=== PATIENT | female | born 1950 | race Caucasian/White ===

== ENCOUNTER 2021-05-05 15:20 | Emergency (ER) | payer OTHER, MEDICAID ==
--- NOTE | 2021-05-05 15:22 | EDM.PDOC ---
ED HPI GENERAL MEDICAL PROBLEM - General Stated Complaint: ARM INJURY Time Seen by Provider: 05/05/21 15:20 Source of Information: Reports: Patient History Limitations: Reports: No Limitations - History of Present Illness INITIAL COMMENTS - FREE TEXT/NARRATIVE: Patient comes emergency department today from home with concerns of an injury to her right shoulder. Just prior to arrival the patient was at home when she was walking her dog which is a rather large dog that took off running and pulled on her leash and she fell landing on her right shoulder. She did not hit her head. There was no loss of conscious. She complains of pain to the right lateral shoulder region. She denies any paresthesia to the right arm. She has no head neck or back pain. She had no loss of consciousness. She had not take anything for pain prior to arrival. Right Upper Arm Pain Score (Numeric/FACES): 6 - Related Data Allergies Allergy/AdvReac Type Severity Reaction Status Date / Time bee venom protein (honey bee) Allergy Hives Verified 05/05/21 15:47 lisinopril Allergy Cough Verified 05/05/21 15:47 Penicillins Allergy Cannot Verified 05/05/21 15:47 Remember "anesthesia" Allergy Shortness Uncoded 05/05/21 15:47 of Breath Home Meds: Home Meds Acetaminophen [Tylenol Extra Strength] 1,000 mg PO TID PRN 08/15/18 [History] Aspirin [Halfprin] 81 mg PO DAILY 08/15/18 [History] Cholecalciferol (Vitamin D3) [Vitamin D3] 1,000 units PO DAILY 08/15/18 [History] Divalproex Sodium [Depakote ER] 500 mg PO BID 08/15/18 [History] Loratadine [Claritin] 5 mg PO DAILY@18 08/15/18 [History] Multivitamin [Multi-Vitamin Daily] 1 each PO DAILY 08/15/18 [History] Sertraline [Zoloft] 125 mg PO DAILY 08/15/18 [History] Sodium Chloride 1 gm PO BID 08/15/18 [History] Spironolactone [Aldactone] 12.5 mg PO DAILY 08/15/18 [History] atorvaSTATin Calcium [Lipitor] 20 mg PO DAILY@18 08/15/18 [History] Albuterol/Ipratropium [DuoNeb 3.0-0.5 MG/3 ML] 1 vial INH TID 08/07/19 [History] Albuterol/Ipratropium [DuoNeb 3.0-0.5 MG/3 ML] 3 ml INH QID PRN 08/07/19 [History] Benzonatate 200 mg PO TID 08/07/19 [History] Eucalyptus/Menthol [Cough Drops] 1 ea PO Q2H PRN 08/07/19 [History] Omeprazole 20 mg PO DAILY 08/07/19 [History] Phenylephrine HCl [Sudogest PE] 10 mg PO Q4H PRN 08/07/19 [History] Polyvinyl Alcohol [LiquiTears 1.4% Ophth Soln] 1 drop EYEBOTH QID PRN 08/07/19 [History] QUEtiapine [SEROquel] 25 mg PO DAILY 08/07/19 [History] QUEtiapine [SEROquel] 50 mg PO DAILY@18 08/07/19 [History] amLODIPine [Norvasc] 2.5 mg PO DAILY 08/07/19 [History] guaiFENesin/Dextromethorphan [Tussin Dm Liquid] 5 ml PO Q4H 08/07/19 [History] guaiFENesin/Dextromethorphan [Tussin Dm Liquid] 5 ml PO TID 08/07/19 [History] traMADol HCl [Tramadol HCl] 50 mg PO TID PRN #12 tablet 05/05/21 [Rx] Past Medical History HEENT History: Reports: Allergic Rhinitis Cardiovascular History: Reports: High Cholesterol, Hypertension 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: Musculoskeletal History: Reports: Osteoarthritis, Other (See Below) (chronic pain) Neurological History: Reports: Seizure Psychiatric History: Reports: Alzheimers Disease, Anxiety, Dementia, Depression, PTSD, Other (See Below) (insomnia, history of self-harm) Other Psychiatric History: history of self harm Hematologic History: Reports: Other (See Below) (chronically low Na/Cl, Vitamin D deficiency) Social & Family History - Family History Family Medical History: No Pertinent Family History - Caffeine Use Caffeine Use: Reports: Coffee Review of Systems - Review of Systems Review Of Systems: Comprehensive ROS is negative, except as noted in HPI. ED EXAM, GENERAL - Physical Exam Exam: See Below Exam Limited By: No Limitations General Appearance: Alert, WD/WN, No Apparent Distress Eye Exam: Bilateral Eye: EOMI, PERRL Ears: Normal External Exam Nose: Normal Inspection Throat/Mouth: Normal Inspection Head: Atraumatic, Normocephalic Neck: Normal Inspection, Supple, Non-Tender, Full Range of Motion. No: Tender Lateral, Tender Midline Respiratory/Chest: No Respiratory Distress, Lungs Clear, Normal Breath Sounds, No Accessory Muscle Use, Chest Non-Tender Cardiovascular: Normal Peripheral Pulses, Regular Rate, Rhythm GI/Abdominal: Normal Bowel Sounds, Soft (Female) Exam: Deferred Rectal (Female) Exam: Deferred Extremities: Normal Capillary Refill. No: Normal Inspection (Tenderness to the lateral right shoulder. NO loss of fullness. NO breaks in the skin. Humerus and rest of the right arm is atraumatic. CMS intact appropriately. ), Normal Range of Motion (Decreased ROM to the right shoulder. ) Neurological: Alert, Oriented, No Motor/Sensory Deficits Psychiatric: Normal Affect, Normal Mood Skin Exam: Warm, Dry, Intact, Normal Color Lymphatic: No Adenopathy Course - Vital Signs Last Recorded V/S: Last Vital Signs Temp 96.9 F 05/05/21 15:15 Pulse 60 05/05/21 15:15 Resp 20 05/05/21 15:15 BP 159/75 H 05/05/21 15:15 Pulse Ox 100 05/05/21 15:15 - Orders/Labs/Meds Meds: Medications Discontinued Medications Generic Name Dose Route Start Last Admin Trade Name Ohq PRN Reason Stop Dose Admin Tramadol HCl 1 packet 05/05/21 16:15 05/05/21 16:28 Take Home: Tramadol 50 Mg, 4 Tab Pack PO 05/05/21 16:16 1 packet ONETIME ONE Administration - Radiology Interpretation Free Text/Narrative:: Right shoulder x-ray per radiology shows acute subcapital right femoral neck fracture with involvement of the greater tuberosity. The greater tuberosity demonstrates approximately 3 mm of lateral displacement. No dislocation. 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 xray shows a right humerus fracture. She was placed in a shoulder immobilizer and will be discharged home. She does not have any family here in town in [place] although she does not feel that she will need assistance at home. She is a and [facility] to see if she can get assistance if she feels at some time that she may need some. Discharge instruction as below were explained to the patient. She was comfortable with this plan and his questions answered. Departure - Departure Time of Disposition: 15:50 Disposition: Home, Self-Care 01 Clinical Impression: Fracture of humeral head, right, closed Qualifiers: Encounter type: initial encounter Qualified Code(s): S42.291A - Other displaced fracture of upper end of right humerus, initial encounter for closed fracture - Discharge Information *PRESCRIPTION DRUG MONITORING PROGRAM REVIEWED*: Not Applicable *COPY OF PRESCRIPTION DRUG MONITORING REPORT IN PATIENT IZZY: Not Applicable Prescriptions: traMADol HCl [Tramadol HCl] 50 mg PO TID PRN #12 tablet PRN Reason: Pain (Severe 7-10) Instructions: RICE Therapy for Routine Care of Injuries, [id number], How to use a Sling, [id number], Pain Medicine Instructions, [id number] Referrals: Shagufta Barron MD [Primary Care Provider] - Forms: ED Department Discharge Additional Instructions: RICE therapy to the right shoulder. Ice as much as possible for the next few days. Sling at all times. May take off to shower and bath. Tylenol as needed for pain. If pain not controlled with above. Tramadol 1 tablet three times a day as needed for pain. Caution sedation. RX sent to [facility]. Starter pack sent home from the ED. [facility] on t[facility] and get a time set up for follow up with ortho in 1 week. Return to the ED if new or worsening symptoms.
--- NOTE | 2021-05-05 16:01 | CR ---
[id number] RAD/RAD Humerus Right 2V EXAM: 2 VIEWS RIGHT SHOULDER. INDICATION: FALL RT UPPER EXT PAIN INJURY COMPARISON: None. DISCUSSION: Acute subcapital right humeral neck fracture with involvement of the greater tuberosity. The greater tuberosity demonstrates approximately 3 mm of lateral displacement. No dislocation. IMPRESSION: 1. As above. Nahum Rudd DO 05/05/21 1600 Thank you for allowing us to participate in the care of your patient.
--- NOTE | 2021-05-05 16:01 | CR ---
[id number] RAD/RAD Shoulder Right 2V Min EXAM: SINGLE VIEW RIGHT SHOULDER. INDICATION: FALL RT UPPER EXTREMITY PAIN, INJURY COMPARISON: None. DISCUSSION: Acute subcapital right humeral neck fracture with involvement of the greater tuberosity. The greater tuberosity demonstrates approximately 3 mm of lateral displacement. No dislocation. IMPRESSION: 1. As above. Nahum Rudd DO 05/05/21 1600 Thank you for allowing us to participate in the care of your patient.
[2021-05-05] MEDS ORDERED: Take Home: traMADol 50 MG, 4 Tab Pack PO ONE (16:15)
== END 2021-05-05 16:39 | disposition home or self-care (01) ==
LOC: VM.ED 15:20
DX: S42.251A Displaced fracture of greater tuberosity of right humerus, initial encounter for closed fracture (principal); I10 Essential (primary) hypertension; E78.00 Pure hypercholesterolemia, unspecified; Z91.030 Bee allergy status; Z88.0 Allergy status to penicillin; Z88.4 Allergy status to anesthetic agent; Z79.82 Long term (current) use of aspirin; Z79.899 Other long term (current) drug therapy; W19.XXXA Unspecified fall, initial encounter; Y92.009 Unspecified place in unspecified non-institutional (private) residence as the place of occurrence of the external cause
CPT/HCPCS: 73030; 73060; 99284; A9270

== ENCOUNTER 2022-04-26 18:55 | Emergency (ER) | payer OTHER, MEDICAID ==
[2022-04-26] MEDS ORDERED: Take Home: Acetaminophen/HYDROcodone 325-5 MG, 5 Tab Pack PO ONE (19:55)
== END 2022-04-26 20:50 | disposition home or self-care (01) ==
LOC: VM.ED 18:55
DX: S82.831A Other fracture of upper and lower end of right fibula, initial encounter for closed fracture (principal); E78.00 Pure hypercholesterolemia, unspecified; I10 Essential (primary) hypertension; M19.90 Unspecified osteoarthritis, unspecified site; G30.9 Alzheimer's disease, unspecified; F02.80 Dementia in other diseases classified elsewhere, unspecified severity, without behavioral disturbance, psychotic disturbance, mood disturbance, and anxiety; Z88.8 Allergy status to other drugs, medicaments and biological substances; Z88.4 Allergy status to anesthetic agent; Z88.0 Allergy status to penicillin; Z91.030 Bee allergy status; Z79.82 Long term (current) use of aspirin; Z79.899 Other long term (current) drug therapy; W18.30XA Fall on same level, unspecified, initial encounter
CPT/HCPCS: 73610; 99284; A9270